=== PATIENT | female | born 1975 | race Two or more races ===

== ENCOUNTER 2019-06-20 17:11 | Emergency (ER) | payer OTHER ==
[~2019-06-20] VITALS: Ht 157.5 cm; Wt 73.5 kg
[2019-06-20 18:31] VITALS: BP 140/88
== END 2019-06-20 20:34 | disposition home or self-care (01) ==
LOC: ER 17:11
DX: S39.012A Strain of muscle, fascia and tendon of lower back, initial encounter (principal); M51.26 Other intervertebral disc displacement, lumbar region; X50.0XXA Overexertion from strenuous movement or load, initial encounter; Y93.89 Activity, other specified; Y92.69 Other specified industrial and construction area as the place of occurrence of the external cause; Y99.8 Other external cause status
CPT/HCPCS: 72131

== ENCOUNTER → 2019-10-27 | Outpatient (CLI) | payer BC | END | disposition home or self-care (01) | LOC: LAB 14:33 | PROVIDERS: ATTEND Physician Assistant | DX: Z03.818 Encounter for observation for suspected exposure to other biological agents ruled out (principal) | CPT/HCPCS: 87635 ==

== ENCOUNTER → 2019-12-25 | Outpatient (CLI) | payer OTHER | END | disposition home or self-care (01) | LOC: LAB 15:48 | PROVIDERS: ATTEND Nurse Practitioner Family | DX: Z20.828 Contact with and (suspected) exposure to other viral communicable diseases (principal) | CPT/HCPCS: C9803; U0003 ==

== ENCOUNTER 2019-12-28 11:04 | Emergency (ER) | payer BC, OTHER ==
[~2019-12-28] VITALS: Ht 157.5 cm; Wt 73.9 kg
[2019-12-28 11:43] VITALS: BP 116/79
[2019-12-28] MEDS ORDERED: ACETAMINOPHEN 325 MG TAB PO ONE ×2 (13:19→13:30)
== END 2019-12-28 13:36 | disposition home or self-care (01) ==
LOC: ER 11:04
DX: R50.9 Fever, unspecified (principal); Z20.828 Contact with and (suspected) exposure to other viral communicable diseases
CPT/HCPCS: 36415; 71045; 87426

== ENCOUNTER → 2020-01-31 | Outpatient (CLI) | payer BC ==
[2020-01-31 11:02] LABS: Basophils # (auto) 0 10 ^3/uL (0-0.2); Eosinophils # (auto) 0.1 10 ^3/uL (0-0.8); Hemoglobin 9.7 g/dL (12.2-16.2); Lymphocytes # (auto) 1.8 10 ^3/uL (0.4-5.4); Neutrophils # (auto) 2.3 10 ^3/uL (1.6-8.6); White Blood Cell 4.6 10^3/uL (4.4-10.8)
[2020-01-31 11:07] LABS: Basophils % (auto) 0.8 % (0.0-2.0); Eosinophils % (auto) 2.8 % (0.0-7.0); Hematocrit 31.1 % (36.0-46.0); Mean Corpuscular Hemoglobin 23.4 pg (28.0-32.0); Mean Corpuscular Hgb Conc. 31.3 g/dL (32.0-36.0); Mean Corpuscular Volume 74.7 fL (80.0-100.0); Monocytes # (auto) 0.4 10 ^3/uL (0-1.3); Monocytes % (auto) 7.8 % (0.0-12.0); Neutrophils % (auto) 49.6 % (37.0-80.0); Platelet Count (auto) 245 10^3/uL (140-450); Red Blood Cells 4.16 10^6/uL (4.0-5.20); Red Cell Distribution Width 19.7 % (11.8-14.3)
[2020-01-31 11:11] LABS: INR 0.98 (0.9-1.15)
[2020-01-31 11:16] LABS: Urine Blood 1+ /uL (Negative); Urine Mucus FEW (None Seen); Urine Specific Gravity 1.023 (1.001-1.035); Urine WBC 4 /hpf (0 - 5)
[2020-01-31 11:29] LABS: Albumin 3.5 g/dL (3.4-5.0); Calcium 8.7 mg/dL (8.5-10.1); Magnesium 2.5 mg/dL (1.6-2.6); Potassium 3.7 mmol/L (3.5-5.1); Uric Acid 3.4 mg/dL (2.6-6.0); Urine Bacteria FEW /hpf (None Seen)
[2020-01-31 11:35] LABS: Bilirubin, Total 0.5 mg/dL (0.2-1.0); Phosphorus 3.7 mg/dL (2.5-4.90); Total Protein 7.5 g/dL (6.4-8.2)
[2020-01-31 11:39] LABS: Free T3 2.4 pg/mL (2.3-4.2); T3 Total 0.9 ng/mL (0.60-1.81)
== END | disposition home or self-care (01) ==
LOC: LAB 10:27
DX: Z13.21 Encounter for screening for nutritional disorder (principal); Z13.29 Encounter for screening for other suspected endocrine disorder; Z13.89 Encounter for screening for other disorder; N39.0 Urinary tract infection, site not specified; E03.9 Hypothyroidism, unspecified; J44.9 Chronic obstructive pulmonary disease, unspecified; R53.1 Weakness; D51.0 Vitamin B12 deficiency anemia due to intrinsic factor deficiency; R73.09 Other abnormal glucose; Z87.440 Personal history of urinary (tract) infections
CPT/HCPCS: 36415; 80053; 80061; 81001; 82306; 82607; 83036; 83540; 83615; 83735; 84100; 84439; 84443; 84480; 84481; 84550; 85025; 85610; 87086

== ENCOUNTER 2025-01-06 07:49 | Outpatient (CLI) | payer BC ==
[2025-01-06 08:21] LABS: Hemoglobin 8.7 g/dL (12.2-16.2)
[2025-01-06 08:25] LABS: Hematocrit 29.2 % (36.0-46.0); Mean Corpuscular Hemoglobin 19.0 pg (28.0-32.0); Mean Corpuscular Volume 64.1 fL (80.0-100.0); Nucleated Red Blood Cells % 0.0 %
[2025-01-06 08:36] LABS: Urine Protein, UAD Negative (Negative)
[2025-01-06 08:37] LABS: Iron 19.0 ug/dL (50-170)
[2025-01-06 08:42] LABS: Total Iron Binding Capacity 473.0 ug/dL (250-425)
[2025-01-06 08:47] LABS: Alanine Aminotransferase 17 U/L (7-40); Alkaline Phosphatase 79 U/L (46-116); Anion Gap 9 (5-15); BUN/Creatinine Ratio 14.3 (10.0-20.0); Blood Urea Nitrogen 11 mg/dL (9-23); Calcium 9.2 mg/dL (8.7-10.4); Carbon Dioxide 25 mmol/L (20-31); Chloride 106 mmol/L (98-107); Glucose 80 mg/dL (74-106); Potassium 3.7 mmol/L (3.5-5.1); Sodium 140 mmol/L (136-145)
[2025-01-06 08:48] LABS: Total Protein 8.1 g/dL (5.7-8.2)
[2025-01-06 08:49] LABS: Albumin 4.6 g/dL (3.2-4.8); Bilirubin, Total 0.7 mg/dL (0.2-1.0)
[2025-01-07 08:07] LABS: Free Thyroxine Index 2.2 (1.2-4.9)
== END 2025-01-06 17:00 | disposition home or self-care (01) ==
LOC: LAB 07:49
PROVIDERS: ATTEND Family Medicine
DX: Z00.00 Encounter for general adult medical examination without abnormal findings (principal)
CPT/HCPCS: 36415; 80053; 81001; 82306; 82607; 82746; 83036; 83540; 83550; 84402; 84403; 84443; 85025; 86376; 87086